=== PATIENT | female | born 1990 | race African-American/Black ===

== ENCOUNTER 2017-05-28 21:03 | Emergency (ER) | payer SELFPAY ==
[~2017-05-28] VITALS: Ht 160 cm; Wt 60.0 kg
[2017-05-28 21:21] VITALS: BP 124/68
== END 2017-05-29 02:40 | disposition left against medical advice (07) ==
LOC: ER 21:52
DX: Z53.21 Procedure and treatment not carried out due to patient leaving prior to being seen by health care provider (principal)
CPT/HCPCS: 93005

== ENCOUNTER 2021-05-04 17:40 | Emergency (ER) | payer MEDICAID ==
[~2021-05-04] VITALS: Ht 160 cm; Wt 59.0 kg
[2021-05-04] MEDS ORDERED: IBUPROFEN 600MG TABLET PO ONE (18:45)
[2021-05-04] MEDS ORDERED: ACETAMINOPHEN 325MG TABLET PO ONE (19:15)
[2021-05-04 19:20] VITALS: BP 125/77
[2021-05-04] MEDS ORDERED: IBUP-2029 MT (19:57)
== END 2021-05-04 20:33 | disposition home or self-care (01) ==
LOC: ER 17:40
DX: S62.306A Unspecified fracture of fifth metacarpal bone, right hand, initial encounter for closed fracture (principal); S62.308A Unspecified fracture of other metacarpal bone, initial encounter for closed fracture; X58.XXXA Exposure to other specified factors, initial encounter; Y93.89 Activity, other specified; Y92.89 Other specified places as the place of occurrence of the external cause; Y99.8 Other external cause status
CPT/HCPCS: 29125; 73130; 99283